=== PATIENT | male | born 1970 | race Caucasian/White ===

== ENCOUNTER 2017-07-11 12:11 | Emergency (ER) | payer BC ==
[2017-07-11 12:55] VITALS: BP 152/88
[2017-07-11] MEDS ORDERED: METHYLPREDNISOLONE ACETATE 80 MG/ML VIAL IM ONE (13:26)
--- NOTE | 2017-07-11 13:32 | ERNOTE ---
Integumentary HPI - General Presenting Symptoms: rash Time Seen by Provider: 07/11/17 13:16 Source: patient, family - Immun/Allergies/Home Medications Immunizations: IMMUNIZATION HX Immunizations Up to Date Yes History of Influenza Vaccine No Hx Pneumococcal Vaccination No Allergies/Adverse Reactions: Allergies Allergy/AdvReac Type Severity Reaction Status Date / Time No Known Allergies Allergy Verified 07/11/17 12:56 Home Medications: HOME MEDICATIONS Temazepam [Restoril] 30 mg PO HS PRN 10/23/14 [Last Taken Unknown] Famotidine [Pepcid] 20 mg PO BID #10 tablet 07/11/17 [Last Taken Unknown] predniSONE [Deltasone] 20 mg PO BID #10 tablet 07/11/17 [Last Taken Unknown] - History of Present Illness Narrative: Patient was mowing grass and thinks he possibly got into some poison donovan. As it was somewhat hot while he was doing this he likely got on his hands and stated that he rubbed his face and probably inoculated his right side of his nose and under the right eye. Not appear to have anything on the actual eye itself. He rates the discomfort as [id number] in intensity. Location: Reports: facial, upper extremity Quality: Reports: itching Severity: mild Exposure: Reports: poison donovan/oak Associated Symptoms: Reports: denies symptoms Review of Systems - Review of Systems Constitutional: Present: See HPI EYE: Present: no symptoms reported ENT: Present: no symptoms reported Respiratory: Present: no symptoms reported Cardiology: Present: no symptoms reported Gastrointestinal/Abdominal: Present: no symptoms reported Genitourinary: Present: no symptoms reported Musculoskeletal: Present: no symptoms reported Skin: Present: See HPI, rash Neurological: Present: no symptoms reported Endocrine: Present: no symptoms reported Hematologic/Lymphatic: Present: no symptoms reported Psych: Present: no symptoms reported - Patient's Past Medical History Patient History - Medical: No pertinent hx Patient History - Cardiac/Respiratory: No pertinent hx Patient History - Cancer: No Hx of Cancer Patient History - Surgical Procedures: Hernia Repair Patient History - Other: None - Social History Living Situations: home Abuse History: No History of abuse Psych History: No pertinent hx Smoking Status: Never smoker Have you smoked in the past 12 months: No Do you dip or chew tobacco: No - Immunizations Immunizations Up to Date: Yes Hx Pneumococcal Vaccination: No History of Influenza Vaccine: No Physical Exam - Physical Exam General Appearance: Present: wd/wn, alert, mild distress Eye Exam: Normal inspection: bilateral, PERRL: bilateral Ears, Nose, Throat: Present: normal ENT inspection, normal pharynx, other - urticarial rash on the right side of the nose and under the right eye Neck: Present: normal inspection, nontender Respiratory: Present: no respiratory distress, normal breath sounds, no accessory muscle use, chest nontender, lungs clear Cardiovascular/Chest: Present: regular rate, rhythm, no murmur, normal peripheral pulses Gastrointestinal/Abdominal: Present: normal bowel sounds, nontender, nondistended, soft, no organomegaly Rectal Exam: Present: deferred Back Exam: Present: normal inspection, normal range of motion Extremity Exam: Present: normal inspection, non-tender, no edema, normal range of motion Neurological Exam: Present: alert, oriented, normal mood/affect Skin Exam: Present: normal color, warm/dry Lymphatic Exam: Present: no adenopathy ED Progress - Vital Signs Patient's Vital Signs:: I have reviewed the patient's vital signs. Vital Signs: Vital Signs 07/11/17 12:52 Temperature 36.9 C Pulse Rate 96 Respiratory 18 Rate Blood Pressure 152/88 O2 Sat by Pulse 96 Oximetry - Progress/Reassessment Chief Complaint: Rash Plan - Plan Plan: Patient will be given a shot of Depo-Medrol here in the ER and will be started on prednisone at home for 5 days. Patient was told to go home and wash all the clothes that he had been using that day when he was mowing, put on rubber gloves and wash all of his tools and more with soap and water and was given careful instructions on possible reinoculation. Departure Clinical Impression: Contact dermatitis Qualifiers: Contact dermatitis type: allergic Contact dermatitis trigger: unspecified trigger Qualified Code(s): L23.9 - Allergic contact dermatitis, unspecified cause - Departure Disposition: Home self-care Condition: Good Instructions: Contact Dermatitis, [id number] Additional Instructions: Benadryl for any itching Referrals: John Calzada MD [Primary Care Provider] - Prescriptions: Famotidine [Pepcid] 20 mg PO BID #10 tablet predniSONE [Deltasone] 20 mg PO BID #10 tablet
[2017-07-11] MEDS ORDERED: METHYLPREDNISOLONE ACETATE 80 MG/ML VIAL ONE (13:33)
== END 2017-07-11 13:41 | disposition home or self-care (01) ==
LOC: ER 12:11
DX: L23.9 Allergic contact dermatitis, unspecified cause (principal)